=== PATIENT | female | born 1955 | race Caucasian/White ===

== ENCOUNTER 2020-06-24 10:10 | Outpatient (REF) | payer OTHER, SELFPAY ==
--- NOTE | 2020-06-24 10:22 | XR_ITS ---
EXAMINATION: XR CHEST CLINICAL INFORMATION: Abnormal chest x-ray COMPARISON: None TECHNIQUE: 2 views of the chest were obtained. FINDINGS: Cardiac silhouette is normal in size. Lungs are well aerated. There is no lobar consolidation. Suspected right apical pleural thickening/scarring. No pleural effusion or pneumothorax. Mild degenerative changes of the spine. XR/XR chest 2V IMPRESSION: No acute pulmonary pathology.
== END 2020-06-24 10:11 | disposition home or self-care (01) ==
LOC: HO.XRAY 10:10
PROVIDERS: PCP Internal Medicine; Visit Provider Hospitalist
DX: R93.89 Abnormal findings on diagnostic imaging of other specified body structures (principal)
CPT/HCPCS: 71046

== ENCOUNTER → 2020-06-27 08:53 | Outpatient (BNVA) | payer OTHER, SELFPAY | PROVIDERS: PCP Internal Medicine; Visit Provider Hospitalist | DX: Z76.89 Persons encountering health services in other specified circumstances (principal) ==

== ENCOUNTER 2023-10-24 13:15 | Outpatient (AMB) | payer BC, SELFPAY ==
[2023-10-24 13:22] VITALS: PULSE 74; O2SAT 97; BMI 23.0
--- NOTE | 2023-10-24 13:22 | MHC.OFFVIS ---
Intake Vital Signs 10/24/23 13:22 Height 5 ft 3 in Weight 130 lb BMI 23.0 Pulse 74 Pulse Source Pulse Oximeter Pulse Oximetry (%) 97 Oxygen Delivery Method Room Air Intake Visit Reasons: Asthma Toggle Press Folder And Feeder Required: No Allergies aspirin Allergy (Severe, Verified 10/24/23 13:24) Deadly Oxycodone Allergy (Severe, Uncoded 10/24/23 13:24) Rash Percocet Allergy (Severe, Uncoded 10/24/23 13:24) Rash Advil PM Adverse Reaction (Unknown, Uncoded 10/24/23 13:24) GI Upset HPI HPI Comments History of Present Illness Details The patient is a 64-year-old woman with a known history of perforated duodenal ulcer requiring surgery. Initially I had evaluated her after she had a bout of a viral syndrome and she developed wheezing and was treated accordingly. Subsequent after that she felt well and she was able to be weaned off medication. At the time she did have an x-ray demonstrating some hyperinflation with some basilar atelectasis and scarring. We had also looked at some x-rays from after surgery which she had postoperative basilar changes as well. After that the patient had been doing well off inhalers. She still has a rescue inhaler that she had not used. She started complaining of some chest tightness and pain. She did go to a chiropractor and did have manipulations and had some improvement discomfort. In the meantime she underwent an x-ray which demonstrated hyperinflation of the chest with retrosternal space. I personally reviewed the x-rays. She still has some atelectasis and potentially scarring at the bases left more than right. Indeed her x-rays have not been normal after her surgery. She was concerned because of the hyperinflation. Therefore, in the office today we did a repeat spirometry demonstrating no obstructive ventilatory defect therefore the patient does not have COPD. However, she may have asthma with waxing waning symptoms. Therefore we did talk about considering a methacholine challenge. In the meantime the patient does have a rescue inhaler and we did provide her with a peak flow to make sure that she will check her peak flow regularly, but, also when having symptoms. 06/27/2020 the patient is here for pulmonary follow-up visit. Overall she has been doing very well. She has not had to use her rescue inhaler. She does state active walking on a regular basis. She denies any wheezing or any significant coughing. Again we talked about a spirometry demonstrating no evidence of a fixed obstruction. The patient is concerned with the diagnosis of COPD. At this point we do not find any evidence of COPD, although, she probably has some reactive airway disease and/or asthma. She also had a chest x-ray that we personally reviewed in the office. She has interval resolution of the atelectasis although she still has some slight thickening of the left diaphragmatic paresis. Very minimal. In addition to that likely has some apical scarring which is common. Otherwise the patient is without any other complaints. Will plan to have her come back sometime in the fall of 2020 and will perform formal pulmonary functions at that time. If the patient has any worsening symptoms prior to that she is to call for an appointment. 10/24/2023 the patient is here for a sick visit. Apparently she had been in his usual state health until after the holidays when she started developing a respiratory illness. She started developing a cough. Cough was persistent. Moderate severity. Did not respond to her respiratory therapy. She did seek medical care. She had an x-ray without any acute disease. The patient was also placed on a course of antibiotics, doxycycline. No significant improvement. She still been struggling with her cough. Denies any chest tightness or wheezing. Denies any fevers or chills. On examination today the patient does have a cough which appears to be more bronchospastic. In addition to that does have erythema of the nose although no significant cobblestoning. Will go ahead and request blood work to assess here immune system and also allergies which may be contributing to her underlying upper airway cough syndrome. Will go ahead and also treat her for sinusitis and patient will call if she is no better. [facility] Medical History (Updated 10/27/23 @ 20:56 by Claudy Hunter MD) Chronic cough Allergies Reactive airway disease Abnormal chest x-ray Review of Systems Const Denies night sweats ENT Reports change in voice, Denies lip swelling, Denies mouth pain, Reports nasal congestion, Reports nasal discharge, Reports nasal obstruction, Reports post nasal drip and Denies tongue swelling Card Denies chest pain Resp Reports cough GI Denies abdominal pain Musc Denies no additional complaints Neuro Denies Neuro-related abnormal movements Psych Denies no additional complaints Paolo/Lymph Denies easy bleeding and Denies lymphadenopathy Aller/Immun Denies lip swelling and Denies tongue swelling Physical Exam Vital Signs: Last Vital Signs Pulse 74 10/24/23 13:22 Pulse Ox 97 10/24/23 13:22 Oxygen Delivery Method Room Air 10/24/23 13:22 BMI result Body Mass Index 23.0 Const General: alert HEENT General nose exam: Abnormal external nose present and Nasal discharge present Eyes Pupils: Equal, round and reactive pupils present Neck Neck: Yes normal visual inspection, Yes full ROM and Yes no lymphadenopathy Chest Chest palpation & inspection: normal inspection of the chest Resp Auscultation: diminished lung sounds Cardio Rate: regular rate Rhythm: regular rhythm Heart sounds: S1 normal heart sound present and S2 normal heart sound present GI Palpation (GI): Soft to palpation and nontender Auscultation: normal bowel sounds General: Yes no CVA tenderness Back/Spine/Pelvis Back: no CVA tenderness Skin General skin exam: rashes and/or lesions noted Neuro Cranial nerves: Yes Equal, round and reactive pupils present Assessment & Plan Assessment & Plan (1) Abnormal chest x-ray: Comment: Overall better. Likely postoperative changes. No further imaging studies warranted. Code(s): R93.89 - Abnormal findings on diagnostic imaging of other specified body structures (2) Reactive airway disease: Code(s): J45.909 - Unspecified asthma, uncomplicated Qualifiers: Asthma severity: mild Asthma persistence: intermittent Asthma complication type: uncomplicated Qualified Code(s): J45.20 - Mild intermittent asthma, uncomplicated Plan: Continue short-acting beta agonist as needed If she needs her short-acting beta agonist regularly consider methacholine challenge to assess for hyperreactive airways and diagnosis of asthma. (3) Chronic cough: Code(s): R05.3 - Chronic cough (4) Allergies: Code(s): T78.40XA - Allergy, unspecified, initial encounter Qualifiers: Encounter type: initial encounter Qualified Code(s): T78.40XA - Allergy, unspecified, initial encounter (5) Sinusitis: Code(s): J32.9 - Chronic sinusitis, unspecified Qualifiers: Sinusitis location: unspecified location Chronicity: subacute Qualified Code(s): J01.90 - Acute sinusitis, unspecified Plan Start Augmentin Start Medrol pk cough medicine LORI as needed Bloodwork Orders: Orders Erythrocyte Sedimentation Rate 10/24/23 R05.3 - Chronic cough, T78.40XA - Allergy, unspecified, initial encounter Hypersensitive Pneumonitis Prf 10/24/23 R05.3 - Chronic cough, R91.8 - Other nonspecific abnormal finding of lung field, T78.40XA - Allergy, unspecified, initial encounter Immunoglobulin G Subclasses 10/24/23 R05.3 - Chronic cough, T78.40XA - Allergy, unspecified, initial encounter Resp Allergy Profile Region I 10/24/23 R05.3 - Chronic cough, R91.1 - Solitary pulmonary nodule, T78.40XA - Allergy, unspecified, initial encounter Cell Count w Diff Pleural Fld 10/24/23 R05.3 - Chronic cough, T78.40XA - Allergy, unspecified, initial encounter Immunoglobulin E 10/24/23 R05.3 - Chronic cough, T78.40XA - Allergy, unspecified, initial encounter JOSE Reflex Titer and Pattern 10/24/23 R05.3 - Chronic cough, T78.40XA - Allergy, unspecified, initial encounter Medications: New methylprednisolone (Medrol (Hermilo)) PO PER PKG DIR 21 ea 0RF 6 days codeine-guaifenesin 10-100 mg/5 mL 10 mL PO Q6H PRN 300 mL 0RF cough 10 days amoxicillin-pot clavulanate 875-125 mg 1 tab PO BID 20 tabs 0RF 10 days albuterol sulfate 90 mcg/actuation 2 inhalations inhalation Q6H PRN 18 grams 12RF shortness of breath or wheezing 30 days J44.9 - Chronic obstructive pulmonary disease, unspecified Coding Level of Care Code Est Pt Level 4 (45952) Diagnoses Abnormal chest x-ray R93.89 Mild intermittent reactive airway disease without complication J45.20 Asthma severity: mild Asthma persistence: intermittent Asthma complication type: uncomplicated Chronic cough R05.3 Allergy, initial encounter T78.40XA Encounter type: initial encounter Subacute sinusitis, unspecified location J01.90 Sinusitis location: unspecified location Chronicity: subacute Time Spent (min) 18
== END 2023-10-24 13:53 | disposition home or self-care (01) ==
PROVIDERS: PCP Physician Assistant Medical; Visit Provider Hospitalist
DX: R93.89 Abnormal findings on diagnostic imaging of other specified body structures (principal); J45.20 Mild intermittent asthma, uncomplicated; R05.3 Chronic cough; T78.40XA Allergy, unspecified, initial encounter; J01.90 Acute sinusitis, unspecified
CPT/HCPCS: 99214

== ENCOUNTER 2023-10-24 13:15 | Outpatient (REF) | payer BC, SELFPAY ==
[2023-10-24 16:12] LABS: Erythrocyte Sedimentation Rate 6 MM/HR (0-20)
[2023-10-26 09:28] LABS: Anti Nuclear Antibody Screen NEGATIVE (NEGATIVE)
[2023-10-26 18:33] LABS: Immunoglobulin E 7 kU/L (<OR=114)
[2023-10-27 16:37] LABS: Immunoglobulin G Subclass 1 531 mg/dL (382-929); Immunoglobulin G Subclass 2 321 mg/dL (241-700); Immunoglobulin G Subclass 3 44 mg/dL (22-178); Immunoglobulin G Subclass 4 16.4 mg/dL (4-86); Immunoglobulin G Total 902 mg/dL (600-1540)
[2023-10-30 13:33] LABS: Asperg fumigatus Precip Abs NEGATIVE (NEGATIVE); Micropoly faeni Abs NEGATIVE (NEGATIVE); Pigeon serum Abs NEGATIVE (NEGATIVE); Saccharo pora viridis Abs NEGATIVE (NEGATIVE); Thermo candidus Abs NEGATIVE (NEGATIVE); Thermoa vulgaris #1 NEGATIVE (NEGATIVE)
== END 2023-10-24 13:16 | disposition home or self-care (01) ==
LOC: HO.LAB 13:15
PROVIDERS: PCP Physician Assistant Medical; Visit Provider Hospitalist
DX: R05.3 Chronic cough (principal); R91.8 Other nonspecific abnormal finding of lung field; T78.40XA Allergy, unspecified, initial encounter; R93.89 Abnormal findings on diagnostic imaging of other specified body structures; J45.20 Mild intermittent asthma, uncomplicated
CPT/HCPCS: 36415; 82784; 82785; 85652; 86038; 86331; 86606; 86609

== ENCOUNTER 2023-12-04 11:07 | Outpatient (AMB) | payer BC, SELFPAY ==
--- NOTE | 2023-12-04 11:15 | MHC.OFFVIS ---
Vital Signs 12/04/23 11:17 Height 5 ft 3 in Weight 131 lb BMI 23.2 Pulse 69 Pulse Source Pulse Oximeter Pulse Oximetry (%) 95 Oxygen Delivery Method Room Air Intake Visit Reasons: Asthma Cement Car Dumper Required: No Allergies aspirin Allergy (Severe, Verified 12/04/23 11:18) Deadly Oxycodone Allergy (Severe, Uncoded 12/04/23 11:18) Rash Percocet Allergy (Severe, Uncoded 12/04/23 11:18) Rash Advil PM Adverse Reaction (Unknown, Uncoded 12/04/23 11:18) GI Upset HPI Comments Details: The patient is a 68-year-old woman with a known history of perforated duodenal ulcer requiring surgery. Initially I had evaluated her after she had a bout of a viral syndrome and she developed wheezing and was treated accordingly. Subsequent after that she felt well and she was able to be weaned off medication. At the time she did have an x-ray demonstrating some hyperinflation with some basilar atelectasis and scarring. We had also looked at some x-rays from after surgery which she had postoperative basilar changes as well. After that the patient had been doing well off inhalers. She still has a rescue inhaler that she had not used. She started complaining of some chest tightness and pain. She did go to a chiropractor and did have manipulations and had some improvement discomfort. In the meantime she underwent an x-ray which demonstrated hyperinflation of the chest with retrosternal space. I personally reviewed the x-rays. She still has some atelectasis and potentially scarring at the bases left more than right. Indeed her x-rays have not been normal after her surgery. She was concerned because of the hyperinflation. Therefore, in the office today we did a repeat spirometry demonstrating no obstructive ventilatory defect therefore the patient does not have COPD. However, she may have asthma with waxing waning symptoms. Therefore we did talk about considering a methacholine challenge. In the meantime the patient does have a rescue inhaler and we did provide her with a peak flow to make sure that she will check her peak flow regularly, but, also when having symptoms. 06/27/2020 the patient is here for pulmonary follow-up visit. Overall she has been doing very well. She has not had to use her rescue inhaler. She does state active walking on a regular basis. She denies any wheezing or any significant coughing. Again we talked about a spirometry demonstrating no evidence of a fixed obstruction. The patient is concerned with the diagnosis of COPD. At this point we do not find any evidence of COPD, although, she probably has some reactive airway disease and/or asthma. She also had a chest x-ray that we personally reviewed in the office. She has interval resolution of the atelectasis although she still has some slight thickening of the left diaphragmatic paresis. Very minimal. In addition to that likely has some apical scarring which is common. Otherwise the patient is without any other complaints. Will plan to have her come back sometime in the fall of 2020 and will perform formal pulmonary functions at that time. If the patient has any worsening symptoms prior to that she is to call for an appointment. 10/24/2023 the patient is here for a sick visit. Apparently she had been in his usual state health until after the holidays when she started developing a respiratory illness. She started developing a cough. Cough was persistent. Moderate severity. Did not respond to her respiratory therapy. She did seek medical care. She had an x-ray without any acute disease. The patient was also placed on a course of antibiotics, doxycycline. No significant improvement. She still been struggling with her cough. Denies any chest tightness or wheezing. Denies any fevers or chills. On examination today the patient does have a cough which appears to be more bronchospastic. In addition to that does have erythema of the nose although no significant cobblestoning. Will go ahead and request blood work to assess here immune system and also allergies which may be contributing to her underlying upper airway cough syndrome. Will go ahead and also treat her for sinusitis and patient will call if she is no better. 12/04/2023 the patient is here for pulmonary follow-up visit. She has feeling a little better although she states that after she was treated she ended up a strep ended up needing another course of antibiotics. Now she is finally getting a little better. The cough continues to be persistent moderate severity. Typically hacky cough. Again she has been on multiple courses of antibiotics. We did check a blood work her immune system is strong with normal immunoglobulin levels. Her IgE levels are normal and no significant eosinophilia. Therefore no significant allergic component appreciated. Since she has strep I did recommend she get the Prevnar 20 vaccine today. Her PFTs are really reassuring without any evidence of obstruction although it could be waxing and waning therefore, coughing asthma still in differential. Will provide her with Mk Arriaga to see if we can alleviate some of the cough symptoms. In the meantime she is going to start empirically Breo once a day. If the patient is no better and she continues to cough then we talked about ordering a CT scan of the chest. I did review her last chest x-ray that she had this year demonstrating some peribronchial coughing suggesting some degree of bronchitis and also has some slight blunting of the recess on the left side. Therefore will be reasonable to further look into her lungs with a CT scan to address her ongoing symptoms. [facility] Medical History (Updated 10/27/23 @ 20:56 by Claudy Hunter MD) Chronic cough Allergies Reactive airway disease Abnormal chest x-ray Social History (Updated 12/04/23 @ 11:20 by Jing Dow Fransisca) Patient Tobacco Use Status: Former Tobacco user Tobacco use type: Cigarette Years Smoked: 43 Years Review of Systems Const Denies night sweats ENT Denies lip swelling, Denies mouth pain, Reports nasal congestion, Reports nasal discharge, Reports nasal obstruction, Reports post nasal drip and Denies tongue swelling Card Denies chest pain Resp Reports cough GI Denies abdominal pain Musc Denies no additional complaints Neuro Denies Neuro-related abnormal movements Psych Denies no additional complaints Paolo/Lymph Denies easy bleeding and Denies lymphadenopathy Aller/Immun Denies lip swelling and Denies tongue swelling Physical Exam Vital Signs: Last Vital Signs Pulse 69 12/04/23 11:17 Pulse Ox 95 12/04/23 11:17 Oxygen Delivery Method Room Air 12/04/23 11:17 BMI result Body Mass Index 23.2 Const General: alert HEENT General nose exam: Abnormal external nose present and Nasal discharge present Eyes Pupils: Equal, round and reactive pupils present Neck Neck: Yes normal visual inspection, Yes full ROM and Yes no lymphadenopathy Chest Chest palpation & inspection: normal inspection of the chest Resp Effort & Inspection: normal respiratory effort Auscultation: diminished lung sounds Cardio Rate: regular rate Rhythm: regular rhythm Heart sounds: S1 normal heart sound present and S2 normal heart sound present GI Palpation (GI): Soft to palpation and nontender Auscultation: normal bowel sounds General: Yes no CVA tenderness Back/Spine/Pelvis Back: no CVA tenderness Skin General skin exam: rashes and/or lesions noted Neuro Cranial nerves: Yes Equal, round and reactive pupils present Assessment & Plan Assessment & Plan (1) Abnormal chest x-ray: Comment: Overall better. Likely postoperative changes. No further imaging studies warranted. Code(s): R93.89 - Abnormal findings on diagnostic imaging of other specified body structures Category: Medical (2) Reactive airway disease: Code(s): J45.909 - Unspecified asthma, uncomplicated Category: Medical Qualifiers: Asthma complication type: uncomplicated Asthma persistence: intermittent Asthma severity: mild Qualified Code(s): J45.20 - Mild intermittent asthma, uncomplicated Plan: Continue short-acting beta agonist as needed If she needs her short-acting beta agonist regularly consider methacholine challenge to assess for hyperreactive airways and diagnosis of asthma. (3) Chronic cough: Code(s): R05.3 - Chronic cough Category: Medical (4) Allergies: Code(s): T78.40XA - Allergy, unspecified, initial encounter Category: Medical Qualifiers: Encounter type: initial encounter Qualified Code(s): T78.40XA - Allergy, unspecified, initial encounter Plan start Breo 200mcg daily cough medicine: benzonate LORI as needed prevnar [address] chest if symptoms are no better (PFTs were non diagnostic, CXR with some increase markings and peribronchial coughing F/U 3 months Orders: Orders Pneumococcal 20 Immunization Today J45.20 - Mild intermittent asthma, uncomplicated, R05.3 - Chronic cough Medications: New benzonatate 200 mg PO BID PRN 60 caps 3RF cough 30 days fluticasone furoate-vilanterol 200-25 mcg/dose (Breo Ellipta) 1 inh inhalation DAILY 60 ea 11RF 30 days J45.909 - Unspecified asthma, uncomplicated Coding Level of Care Code Tele Est Pt Level 4 (59052) Diagnoses Abnormal chest x-ray R93.89 Mild intermittent reactive airway disease without complication J45.20 Asthma complication type: uncomplicated Asthma persistence: intermittent Asthma severity: mild Chronic cough R05.3 Allergy, initial encounter T78.40XA Encounter type: initial encounter Time Spent (min) 17
[2023-12-04 11:17] VITALS: PULSE 69; O2SAT 95; BMI 23.2
== END 2023-12-04 11:52 | disposition home or self-care (01) ==
PROVIDERS: PCP Physician Assistant Medical; Visit Provider Hospitalist
DX: Z23 Encounter for immunization (principal); J45.20 Mild intermittent asthma, uncomplicated; R93.89 Abnormal findings on diagnostic imaging of other specified body structures; R05.3 Chronic cough; T78.40XA Allergy, unspecified, initial encounter
CPT/HCPCS: 99214

== ENCOUNTER → 2023-12-04 11:07 | Outpatient (BNVA) | payer BC, SELFPAY | PROVIDERS: PCP Physician Assistant Medical; Visit Provider Hospitalist | DX: J45.20 Mild intermittent asthma, uncomplicated (principal); R39.89 Other symptoms and signs involving the genitourinary system; R05.3 Chronic cough; T78.40XA Allergy, unspecified, initial encounter; Z23 Encounter for immunization | CPT/HCPCS: 90471; 90677 ==

== ENCOUNTER 2024-03-30 08:28 | Outpatient (AMB) | payer BC, SELFPAY ==
[2024-03-30 08:33] VITALS: BP 124/60; PULSE 75; O2SAT 96; BMI 23.8
--- NOTE | 2024-03-30 08:33 | MHC.OFFVIS ---
Vital Signs 03/30/24 08:33 Height 5 ft 2.5 in Weight 132 lb BMI 23.8 BP 124/60 Blood Pressure Location Lt brachial Position Sitting Pulse 75 Pulse Source Pulse Oximeter Pulse Oximetry (%) 96 Oxygen Delivery Method Room Air Intake Visit Reasons: Asthma User Support Specialist Required: No Allergies aspirin Allergy (Severe, Verified 03/30/24 08:37) Deadly Oxycodone Allergy (Severe, Uncoded 03/30/24 08:37) Rash Percocet Allergy (Severe, Uncoded 03/30/24 08:37) Rash ibuprofn Adverse Reaction (Severe, Uncoded 03/30/24 08:37) Stomach Upset Advil PM Adverse Reaction (Unknown, Uncoded 03/30/24 08:37) GI Upset HPI Comments Details: The patient is a 68-year-old woman with a known history of perforated duodenal ulcer requiring surgery. Initially I had evaluated her after she had a bout of a viral syndrome and she developed wheezing and was treated accordingly. Subsequent after that she felt well and she was able to be weaned off medication. At the time she did have an x-ray demonstrating some hyperinflation with some basilar atelectasis and scarring. We had also looked at some x-rays from after surgery which she had postoperative basilar changes as well. After that the patient had been doing well off inhalers. She still has a rescue inhaler that she had not used. She started complaining of some chest tightness and pain. She did go to a chiropractor and did have manipulations and had some improvement discomfort. In the meantime she underwent an x-ray which demonstrated hyperinflation of the chest with retrosternal space. I personally reviewed the x-rays. She still has some atelectasis and potentially scarring at the bases left more than right. Indeed her x-rays have not been normal after her surgery. She was concerned because of the hyperinflation. Therefore, in the office today we did a repeat spirometry demonstrating no obstructive ventilatory defect therefore the patient does not have COPD. However, she may have asthma with waxing waning symptoms. Therefore we did talk about considering a methacholine challenge. In the meantime the patient does have a rescue inhaler and we did provide her with a peak flow to make sure that she will check her peak flow regularly, but, also when having symptoms. 06/27/2020 the patient is here for pulmonary follow-up visit. Overall she has been doing very well. She has not had to use her rescue inhaler. She does state active walking on a regular basis. She denies any wheezing or any significant coughing. Again we talked about a spirometry demonstrating no evidence of a fixed obstruction. The patient is concerned with the diagnosis of COPD. At this point we do not find any evidence of COPD, although, she probably has some reactive airway disease and/or asthma. She also had a chest x-ray that we personally reviewed in the office. She has interval resolution of the atelectasis although she still has some slight thickening of the left diaphragmatic paresis. Very minimal. In addition to that likely has some apical scarring which is common. Otherwise the patient is without any other complaints. Will plan to have her come back sometime in the fall of 2020 and will perform formal pulmonary functions at that time. If the patient has any worsening symptoms prior to that she is to call for an appointment. 10/24/2023 the patient is here for a sick visit. Apparently she had been in his usual state health until after the holidays when she started developing a respiratory illness. She started developing a cough. Cough was persistent. Moderate severity. Did not respond to her respiratory therapy. She did seek medical care. She had an x-ray without any acute disease. The patient was also placed on a course of antibiotics, doxycycline. No significant improvement. She still been struggling with her cough. Denies any chest tightness or wheezing. Denies any fevers or chills. On examination today the patient does have a cough which appears to be more bronchospastic. In addition to that does have erythema of the nose although no significant cobblestoning. Will go ahead and request blood work to assess here immune system and also allergies which may be contributing to her underlying upper airway cough syndrome. Will go ahead and also treat her for sinusitis and patient will call if she is no better. 12/04/2023 the patient is here for pulmonary follow-up visit. She has feeling a little better although she states that after she was treated she ended up a strep ended up needing another course of antibiotics. Now she is finally getting a little better. The cough continues to be persistent moderate severity. Typically hacky cough. Again she has been on multiple courses of antibiotics. We did check a blood work her immune system is strong with normal immunoglobulin levels. Her IgE levels are normal and no significant eosinophilia. Therefore no significant allergic component appreciated. Since she has strep I did recommend she get the Prevnar 20 vaccine today. Her PFTs are really reassuring without any evidence of obstruction although it could be waxing and waning therefore, coughing asthma still in differential. Will provide her with Tesmichael Arriaga to see if we can alleviate some of the cough symptoms. In the meantime she is going to start empirically Breo once a day. If the patient is no better and she continues to cough then we talked about ordering a CT scan of the chest. I did review her last chest x-ray that she had this year demonstrating some peribronchial coughing suggesting some degree of bronchitis and also has some slight blunting of the recess on the left side. Therefore will be reasonable to further look into her lungs with a CT scan to address her ongoing symptoms. 03/30/2024 the patient is here for a pulmonary follow-up visit. The patient continues have a cough. Moderate severity. Still very bothersome to her people around her. It is independent of position and also eating. She did try the inhaler Breo for a month without any significant improvement. Likely has a upper airway cough syndrome. The patient has been also having issues with hoarseness. No significant productive secretions. The patient will benefit from an ENT evaluation for laryngoscopy to assess her vocal cords. In the meantime will be reasonable to start her on small dose of Sudafed. The patient sounds to be sensitive to the Sudafed at high dose. In addition to that we can try 1st generation antihistamine to treat her for the upper a cuff syndrome. She can use inhaler as needed. Will also repeat an x-ray. Her last x-ray was abnormal. If she has any changes on the x-ray the CT scan be helpful to further address her ongoing symptoms. [facility] Medical History (Updated 03/30/24 @ 20:50 by Claudy Hunter MD) Upper airway cough syndrome Chronic cough Allergies Reactive airway disease Abnormal chest x-ray Social History (Updated 12/04/23 @ 11:20 by VIVEK Ren) Patient Tobacco Use Status: Former Tobacco user Tobacco use type: Cigarette Years Smoked: 43 Years Review of Systems Const Denies night sweats ENT Denies lip swelling, Denies mouth pain, Reports nasal congestion, Reports nasal discharge, Reports nasal obstruction, Reports post nasal drip and Denies tongue swelling Card Denies chest pain Resp Reports cough GI Denies abdominal pain Musc Denies no additional complaints Neuro Denies Neuro-related abnormal movements Psych Denies no additional complaints Paolo/Lymph Denies easy bleeding and Denies lymphadenopathy Aller/Immun Denies lip swelling and Denies tongue swelling Physical Exam Vital Signs: Last Vital Signs Pulse 75 03/30/24 08:33 BP 124/60 03/30/24 08:33 Pulse Ox 96 03/30/24 08:33 Oxygen Delivery Method Room Air 03/30/24 08:33 BMI result Body Mass Index 23.8 Const General: alert HEENT General nose exam: Abnormal external nose present and Nasal discharge present Eyes Pupils: Equal, round and reactive pupils present Neck Neck: Yes normal visual inspection, Yes full ROM and Yes no lymphadenopathy Chest Chest palpation & inspection: normal inspection of the chest Resp Effort & Inspection: normal respiratory effort Auscultation: clear to auscultation bilaterally Cardio Rate: regular rate Rhythm: regular rhythm Heart sounds: S1 normal heart sound present and S2 normal heart sound present GI Palpation (GI): Soft to palpation and nontender Auscultation: normal bowel sounds General: Yes no CVA tenderness Back/Spine/Pelvis Back: no CVA tenderness Skin General skin exam: rashes and/or lesions noted Neuro Cranial nerves: Yes Equal, round and reactive pupils present Assessment & Plan Assessment & Plan (1) Abnormal chest x-ray: Code(s): R93.89 - Abnormal findings on diagnostic imaging of other specified body structures Category: Medical (2) Reactive airway disease: Code(s): J45.909 - Unspecified asthma, uncomplicated Category: Medical Qualifiers: Asthma complication type: uncomplicated Asthma persistence: intermittent Asthma severity: mild Qualified Code(s): J45.20 - Mild intermittent asthma, uncomplicated Plan: Continue short-acting beta agonist as needed If she needs her short-acting beta agonist regularly consider methacholine challenge to assess for hyperreactive airways and diagnosis of asthma. (3) Chronic cough: Code(s): R05.3 - Chronic cough Category: Medical (4) Allergies: Code(s): T78.40XA - Allergy, unspecified, initial encounter Category: Medical Qualifiers: Encounter type: initial encounter Qualified Code(s): T78.40XA - Allergy, unspecified, initial encounter (5) Upper airway cough syndrome: Code(s): R05.8 - Other specified cough Category: Medical Plan stop Breo 200mcg daily cough medicine: benzonate start low dose pseudophed start chlorphenarimine as needed LORI as needed prevnar 20 repeat CXR, if abnromal or non diagnostic we will request a CT chest ENT referral for laryngoscopy F/U 3 months Orders: Orders XR chest 2V Today R05.3 - Chronic cough Referrals Ear/Nose/Throat Referral R05.3 - Chronic cough Medications: New pseudoephedrine HCl DNExceed 4 doses/24h 30 mg PO Q6H PRN 90 caps 3RF nasal congestion 30 days chlorpheniramine maleate do not exceed 2 doses per 24 hrs 4 mg PO Q6H PRN 90 tabs 3RF cough 30 days Coding Level of Care Code Est Pt Level 4 (43829) Diagnoses Abnormal chest x-ray R93.89 Mild intermittent reactive airway disease without complication J45.20 Asthma complication type: uncomplicated Asthma persistence: intermittent Asthma severity: mild Chronic cough R05.3 Allergy, initial encounter T78.40XA Encounter type: initial encounter Upper airway cough syndrome R05.8 Time Spent (min) 16
== END 2024-03-30 08:58 | disposition home or self-care (01) ==
PROVIDERS: PCP Physician Assistant Medical; Visit Provider Hospitalist
DX: R93.89 Abnormal findings on diagnostic imaging of other specified body structures (principal); J45.20 Mild intermittent asthma, uncomplicated; R05.3 Chronic cough; T78.40XA Allergy, unspecified, initial encounter; R05.8 Other specified cough
CPT/HCPCS: 99214

== ENCOUNTER 2024-03-30 08:28 | Outpatient (REF) | payer BC, SELFPAY ==
--- NOTE | ~2024-03-30 | XR_ITS ---
EXAMINATION: XR CHEST 2 VIEWS CLINICAL INFORMATION: Chronic cough. COMPARISON: Chest radiographs dated 06/24/2020. TECHNIQUE: Frontal and lateral views of the chest were obtained. FINDINGS: The heart, great vessels, pulmonary vasculature and mediastinum are normal. The lungs show no focal infiltrate, effusion or pneumothorax. There is biapical pleural thickening. There is no acute osseous abnormality. There is multi-level thoracic spondylosis. XR/XR chest 2V IMPRESSION: No active cardiopulmonary disease. Electronically signed by: Pavan Schmitt MD 04/09/2024 08:09 PM EDT RP
== END 2024-03-30 08:29 | disposition home or self-care (01) ==
LOC: HO.XRAY 08:28
PROVIDERS: PCP Physician Assistant Medical; Visit Provider Hospitalist
DX: R05.3 Chronic cough (principal)
CPT/HCPCS: 71046

== ENCOUNTER 2024-05-11 07:16 | Outpatient (REF) | payer BC, SELFPAY ==
--- NOTE | ~2024-05-11 | CT_ITS ---
EXAMINATION: CT CHEST WITHOUT CONTRAST CLINICAL INFORMATION: Abnormal findings. COMPARISON: No prior CT. Correlated to chest x-ray dated March 30, 2024. TECHNIQUE: Multidetector volumetric CT imaging of the chest was done. Axial MIP volume rendering provided. Sagittal and coronal reformatted images were obtained. This CT examination was performed using dose optimization techniques as appropriate, variously including the following: *Automated exposure control *Adjustment of mA and/or kV according to patient size (this includes techniques or standardized protocols for targeted exams where dose is matched to indication/reason for exam; i.e. extremities or head) *Use of iterative reconstruction technique DLP: 105 mGy-cm FINDINGS: Submitted for interpretation on June 10, 2024. LUNGS: There is a 1 mm calcification in the left upper lobe likely granuloma. There is a linear and patchy pulmonary groundglass, lung bases and lingula. There is a 1 mm pulmonary nodule in the periphery of the left upper lobe, nonspecific. Bilateral apical lung scarring.. No bronchiectasis. No honeycombing. Respiratory airways is patent. MEDIASTINUM: No lymphadenopathy, mediastinum or pulmonary kelly. No pericardial effusion. No aneurysm in the thoracic aorta. CORONARY ARTERY CALCIFICATION: None visualized on this study. PLEURA: No pleural effusion. No pneumothorax. AXILLA: No lymphadenopathy. UPPER ABDOMEN: Calcified plaques in the abdominal aorta wall. OSSEOUS STRUCTURES: Multilevel spondylosis without acute fracture or listhesis in the axial skeleton. Osteopenia. No lytic or blastic lesions. CT/CT chest wo IV con IMPRESSION: Subsegmental atelectasis versus scarring, lung bases and lingula. Superimposed acute airspace cannot be entirely excluded. Fleischner guidelines were followed. Electronically signed by: Hung Arias MD 06/10/2024 10:54 AM EST
== END 2024-05-11 07:17 | disposition home or self-care (01) ==
LOC: HO.CT 07:16
PROVIDERS: PCP Internal Medicine; Visit Provider Hospitalist
DX: R93.89 Abnormal findings on diagnostic imaging of other specified body structures (principal); J92.9 Pleural plaque without asbestos
CPT/HCPCS: 71250

== ENCOUNTER → 2024-05-11 07:18 | Outpatient (BNV) | payer BC, SELFPAY | PROVIDERS: PCP Internal Medicine; Visit Provider Radiology Diagnostic Radiology | DX: R91.8 Other nonspecific abnormal finding of lung field (principal) | CPT/HCPCS: 71250 ==

== ENCOUNTER 2024-07-19 07:42 | Outpatient (REF) | payer BC, SELFPAY ==
--- NOTE | ~2024-07-19 | FL_ITS ---
EXAMINATION: FL UPPER GI WITH AIR CLINICAL INFORMATION: Cough, reflux. History of perforated duodenum. COMPARISON: None TECHNIQUE: Fluoroscopic air contrast upper GI examination was performed utilizing standard techniques with thin and thick barium and effervescent granules. Numerous spot images were obtained. FINDINGS: Dual and single contrast images of the esophagus demonstrate a normal caliber and contour. There is mild cricopharyngeal achalasia present. There is a mild granular appearance of the esophageal mucosa, suggestive of esophagitis. No ulcerations are seen. In addition there is felinization of the mid and distal esophageal mucosa. No strictures or masses are identified. Esophageal peristalsis was normal. A small type I hiatal hernia is present. Gastroesophageal reflux is seen up to the midesophagus. Dual contrast and single contrast images of the stomach demonstrated post surgical changes consistent with prior history of gastrojejunostomy. The gastric rugal folds have a mildly thickened appearance, suggestive of gastritis. No masses or ulcerations are seen. Contrast freely passed freely through the gastrojejunostomy and into the jejunum, as well as into the gastric antrum and the duodenal bulb without delay. Single and air-contrast images of the duodenal bulb demonstrate no abnormality. The duodenal sweep has a normal appearance, course, and mucosal fold appearance. The imaged proximal jejunum has a normal fold pattern and caliber. FLUOROSCOPY TIME: 3 minutes 52 seconds Number of Spot Images: 12 Number of Cine: 11 DOSE AREA PRODUCT: 1791 uGy-m2 (microgray-meter squared) FL/FL barium swallow IMPRESSION: 1. Mild cricopharyngeal achalasia. 2. Mild granular appearance of the esophageal mucosa, suggestive of esophagitis. 3. Felinization of the mid and distal esophageal mucosa. This is a benign finding associated with chronic gastroesophageal reflux. 4. Small type I hiatal hernia with moderate gastric esophageal reflux. 5. Post surgical changes consistent with prior history of gastrojejunostomy. Both the pylorus in the gastrojejunostomy is widely patent. This procedure was performed by Carter Yadav PA-C, and supervised by Dr. Dietz. Addendum: There is a small esophageal diverticulum. Mrinal. Mali. MAKI. Electronically signed by: Avinash Dietz MD 07/19/2024 03:00 [facility]
--- OUTSIDE RECORDS SUMMARY | 2024-07-19 07:45 | XMS_ITS | Continuity of Care Document ---
Author Organization [facility] [address] [place] [address] Phone [phone] Care Team Providers Care Winding Inspector And Tester Name Role Phone Luann Harman Care Team Information Receiv er [phone] Problems Active Problems Provider Date Gastroesophageal reflux disease Narayan patel M.D. Onset: 04/01/2022 Osteoporosis Narayan Chou M.D. Onset: 0 04/01/2022 Vitamin D deficiency Narayan Chou M.D. Ons et: 04/01/2022 Social History Type Date Description Comments Sex Unknown Lives With Spouse Tobacco Use Start: Unknown Never Smoked Cigarettes ETOH Use Never used alcohol Allergies and adverse reactions Active Allergies Criticality Reaction Severity Comments Date Advil Unable to assess criticality 04/01/2022 Voltaren Unable to assess criticality 04/01/2022 Aspirin Unable to assess criticality 04/01/2022 Oxycodone Unable to assess criticality 04/01/2022 Medications Active Medications SIG Qnty Indications Ordering Provider Date Vitamin D (Cholecalciferol)25mcg (1000 Ut) Capsules 1 by mouth every day Narayan Chou M.D. 04/01/2022 Albuterol Sulfate [id number](90Base) mcg/Act Aerosol Take 2 Puffs Every Four Hours as Needed For Wheezing/Shortne ss Of Breath Unknown Pantoprazole [id number] Tablets DR Take One Tablet By Mouth Twice A Day Unknown Sertraline [id number] Tablets 1 by mouth every day Unknown Vital Signs Date Vital Result Comment 08/05/2023 4:23pm BP Systolic 120 mmHg BP Diastolic 80 mmHg Heart Rate 72 /min Height 63 inches 5'3 Weight 136.50 lb BMI (Body Mass Index) 24.2 kg/m2 Results Test Acquired Date Facility Test Result H/L Range Note Laboratory test finding 08/08/2023 [facility] Calcium 9.3 mg/dL (8.6-10. 5) Creatinine 08/08/2023 [facility] Creatinine 0.6 mg/dL (0.5-1.0 ) Estimated GFR Creatinine 100 ML/MIN/1.73 M2 1 Laboratory test finding 08/08/2023 [facility] BUN 11 mg/dL (8-23) Laboratory test finding 08/20/2022 [facility] Albumin 4.4 GM/DL (3.4-4.8 ) BUN 13 mg/dL (8-23) Calcium 10.1 mg/dL (8.6-10. 5) Creatinine 08/20/2022 [facility] Creatinine 0.7 mg/dL (0.5-1.0 ) Estimated GFR Creatinine 95 ML/MIN/1.73 M2 2 Laboratory test finding 08/19/2022 [facility] BUN <pending> Albumin <pending> Calcium <pending> Creatinine <pending> Complete Abc With Diff 08/09/2022 [facility] WBC 5.5 K/MM3 (4.0-11. 0) RBC 4.45 M/MM3 (4.20-5. 40) HGB 13.7 GM/DL (11.7-15 .5) HCT 43.6 % (35.7-45 .8) MCV 98.0 FL (80.0-10 0.0) MCH 30.8 pg (27.0-34 .0) MCHC 31.4 g/dL Low (33.0-37 .0) PLT 318 K/MM3 (150-460 ) RDW-SD 45.1 FL (<47.0) MPV 10.7 FL (9.4-12. 4) Automated NRBC 0.0 #/100WBC'S Abs. NRBC 0.0 K/MM3 Neut # 3.2 K/MM3 (1.3-7.0 ) Lymph # 1.5 K/MM3 (0.8-3.1 ) [place]# 0.6 K/MM3 (0.4-0.9 ) Eo # 0.1 K/MM3 (0.0-0.4 ) Baso # 0.1 K/MM3 (0.0-0.1 ) Abs. Imm Gran 0.0 K/MM3 Neut 57.8 % (44-76) Lymph 27.0 % (15-43) Monocyte 10.7 % High (4.5-10. 5) Eo 2.5 % (0-6) Baso 1.6 % (0-2) Imm Gran 0.4 % N-Telopeptide Cross Links, Urine 08/09/2022 [facility] Cross Linked N-Telopeptides 439 3 Creat, Urine 195.8 4 N-Telopeptide/C re at Ratio 25 5 NTX Interpretaion Comment 6 1 Creatinine based est imated glomerular filtration (eGFR) in adults is calculated using the National Kidney Foundation recommended 2020 CKD-EPI equation. Estimates GFR from serum creatinine, age and sex. 2 Creatinine based est imated glomerular filtration (eGFR) in adults is calculated using the National Kidney Foundation recommended 2020 CKD-EPI equation. Estimates GFR from serum creatinine, age and sex. 3 Reference range: Not Estab. Unit: nmol BCE [facility] [address] [place] [address] 4 Reference range: Not Estab. Unit: mg/dL Test performed by [facility], [address] [place] [address] 5 Reference range: 0 t o 89 Unit: nM BCE/mM Cr 6 (NOTE) The N-telopeptide and Creatinine are used to calculate the N-telo/Creat. Ratio which is referred to as NTx . Suggested guidelines for the clinical use of NTx are as follows: 1. Menopausal Women not on Hormone Replacement Therapy (HRT): Women with a baseline NTx value >38 are at significant risk for a decrease in bone mineral density (BMD) after 1 year compared to women on HRT. The probability of a decline in BMD increases with NTx value as follows: (1): Baseline NTx Probability of Decrease in BMD 18- 38 1.4 p EQ 0.28 38- 51 2.5 p EQ 0.03 51- 67 3.8 p EQ 0.0006 67-188 17.3 p EQ 0.0001 2. Menopausal Women Receiving Antiresorptive Therapy: The probability that treatment is effective after three months is increased when the measured NTx value is <or EQ 38 nM BCE/mM INGOT PASSER, or NTx has decreased >or EQ 30% from baseline.[1] 3. Patients with Paget's Disease of Bone: The probability that treatment is effective after one month is increased when the measured NTx value is within the reference range, or NTx has decreased >or EQ 30% from baseline.[2] 1. Anil CH, Eva NH, Jose GS, et al. Am J Med, 102:29-37,1996. (1):M757, 1996. 2. Bone H, Ericka J, et al. J Bone Min Res.11(1):M757,1995 [place] [address] Medical Devices Description No Information Available Encounters Type Date Location Provider Dx Diagnosis Office Visit 08/05/2023 4:30p Main Office Narayan Chou M.D. M81.0 Age-related osteoporosis w/o current pathological fracture Assessments Date Code Description Provider 08/08/2023 M81.0 Age-related oste oporosis without current pathological fracture Narayan Chou M.D. 08/05/2023 M81.0 Osteoporosis Narayan heard M.D. Plan of Treatment Future Appointment(s):* 07/26/2024 8:15 am - Narayan Chou M.D. at Main Office 04/01/2022 - Narayan Chou M.D.* M81.0 Osteoporosis * Functional Status Description No Information Available Mental Status Description No Information Available Referrals Description No Information Available
--- OUTSIDE RECORDS SUMMARY | 2024-07-19 07:45 | XMS_ITS ---
Author Name [facility] Organization Unknown History of Medication Use Medication Directions Dispensed Refills Start Date End Date Stat us sertraline (ZOLOFT) 50 MG tablet Take 50 mg by mouth. 06/17/2024 07/20/9999 active gabapentin (NEURONTIN) 300 MG capsule Take 1 capsule (300 mg total) by mouth nightly. 06/17/2024 07/20/9999 active esomeprazole (NexIUM) 40 MG capsule 1 capsule by Mouth/Oral Cavity route every 12 hours. 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 ProblemAct [facility] Vitamin D deficiency active 2022-04-01 ProblemAct [facility] History of cold sores active 2024-06-15 ProblemAct [facility] Family history of colon cancer active 2018-10-16 ProblemAct [facility] Hoarseness active EncounterDiagnosisAct [facility] Perforation of duodenum active 2014-07-24 ProblemAct [facility] Anxiety active 2011-07-15 ProblemAct [facility] Chronic cough active EncounterDiagnosisAct [facility] B12 deficiency active 2024-06-15 ProblemAct [facility] CT Osteoporosis active 2008-09-26 ProblemAct [facility] Immunizations Vaccine Date Source Lot Number Status Influenza Virus Trivalent Sp lit Vaccine (MDV) IM 08/22/2018 CCT [id number] completed Tdap 11/26/2012 CCT [id number] completed Tdap 04/15/2019 CCT [id number] completed Influenza Virus Trivalent Sp lit Vaccine (MDV) IM 07/14/2014 CCT [id number] completed Influenza, Trivalent (FLUARI X, AFLURIA, FLULAVAL, FLUZONE) Preservative Free IM 07/05/2016 [facility] [id number] completed Influenza Virus Trivalent Sp lit Vaccine (MDV) IM 04/01/2020 [facility] [id number] completed Influenza, Quadrivalent (FLU CELVAX) MDCK, Preservative Free IM 04/06/2021 [facility] [id number] completed Influenza Virus Trivalent Sp lit Vaccine (MDV) IM 04/06/2021 [facility] [id number] completed Influenza Virus Trivalent Sp lit Vaccine (MDV) IM 07/05/2016 [facility] [id number] completed Pneumococcal Polysaccharide 23-Valent 07/14/2014 [facility] [id number] completed Influenza, Trivalent (FLUARI X, AFLURIA, FLULAVAL, FLUZONE) Preservative Free IM 07/05/2022 [facility] [id number] completed Td, Unspecified 08/30/2005 [facility] [id number] completed Influenza Virus Trivalent Sp lit Vaccine (MDV) IM 04/15/2019 [facility] [id number] completed Zoster Vaccine Recombinant (Shingrix) 05/10/2018 [facility] [id number] completed Zoster Vaccine Recombinant (Shingrix) 02/05/2018 [facility] [id number] completed
== END 2024-07-19 07:43 | disposition home or self-care (01) ==
LOC: HO.XRAY 07:42
PROVIDERS: PCP Internal Medicine; Visit Provider Hospitalist
DX: K21.9 Gastro-esophageal reflux disease without esophagitis (principal)
CPT/HCPCS: 74220

== ENCOUNTER → 2024-07-19 07:45 | Outpatient (BNV) | payer BC, SELFPAY | PROVIDERS: PCP Internal Medicine; Visit Provider Physician Assistant Surgical | DX: K21.00 Gastro-esophageal reflux disease with esophagitis, without bleeding (principal); K22.5 Diverticulum of esophagus, acquired; K22.0 Achalasia of cardia | CPT/HCPCS: 74221 ==

== ENCOUNTER 2024-07-20 14:03 | Outpatient (AMB) | payer BC, SELFPAY ==
[2024-07-20 14:06] VITALS: BP 97/60; PULSE 75; O2SAT 94; BMI 24.7
--- NOTE | 2024-07-20 14:06 | A.OFFVIS_ITS ---
Vital Signs 07/20/24 14:06 Height 5 ft 2.5 in Weight 137 lb BMI 24.7 BP 97/60 Blood Pressure Location Lt brachial Position Sitting Pulse 75 Pulse Source Doppler Pulse Oximetry (%) 94 Oxygen Delivery Method Room Air Intake Visit Reasons: asthma Allergies aspirin Allergy (Severe, Verified 03/30/24 08:37) Deadly Oxycodone Allergy (Severe, Uncoded 03/30/24 08:37) Rash Percocet Allergy (Severe, Uncoded 03/30/24 08:37) Rash ibuprofn Adverse Reaction (Severe, Uncoded 03/30/24 08:37) Stomach Upset Advil PM Adverse Reaction (Unknown, Uncoded 03/30/24 08:37) GI Upset HPI Comments Details: The patient is a 68-year-old woman with a known history of perforated duodenal ulcer requiring surgery. Initially I had evaluated her after she had a bout of a viral syndrome and she developed wheezing and was treated accordingly. Subsequent after that she felt well and she was able to be weaned off medication. At the time she did have an x-ray demonstrating some hyperinflation with some basilar atelectasis and scarring. We had also looked at some x-rays from after surgery which she had postoperative basilar changes as well. After that the patient had been doing well off inhalers. She still has a rescue inhaler that she had not used. She started complaining of some chest tightness and pain. She did go to a chiropractor and did have manipulations and had some improvement discomfort. In the meantime she underwent an x-ray which demonstrated hyperinflation of the chest with retrosternal space. I personally reviewed the x-rays. She still has some atelectasis and potentially scarring at the bases left more than right. Indeed her x-rays have not been normal after her surgery. She was concerned because of the hyperinflation. Therefore, in the office today we did a repeat spirometry demonstrating no obstructive ventilatory defect therefore the patient does not have COPD. However, she may have asthma with waxing waning symptoms. Therefore we did talk about considering a methacholine challenge. In the meantime the patient does have a rescue inhaler and we did provide her with a peak flow to make sure that she will check her peak flow regularly, but, also when having symptoms. 06/27/2020 the patient is here for pulmonary follow-up visit. Overall she has been doing very well. She has not had to use her rescue inhaler. She does state active walking on a regular basis. She denies any wheezing or any significant coughing. Again we talked about a spirometry demonstrating no evidence of a fixed obstruction. The patient is concerned with the diagnosis of COPD. At this point we do not find any evidence of COPD, although, she probably has some reactive airway disease and/or asthma. She also had a chest x-ray that we personally reviewed in the office. She has interval resolution of the atelectasis although she still has some slight thickening of the left diaphragmatic paresis. Very minimal. In addition to that likely has some apical scarring which is common. Otherwise the patient is without any other complaints. Will plan to have her come back sometime in the fall of 2020 and will perform formal pulmonary functions at that time. If the patient has any worsening symptoms prior to that she is to call for an appointment. 10/24/2023 the patient is here for a sick visit. Apparently she had been in his usual state health until after the holidays when she started developing a respiratory illness. She started developing a cough. Cough was persistent. Moderate severity. Did not respond to her respiratory therapy. She did seek medical care. She had an x-ray without any acute disease. The patient was also placed on a course of antibiotics, doxycycline. No significant improvement. She still been struggling with her cough. Denies any chest tightness or wheezing. Denies any fevers or chills. On examination today the patient does have a cough which appears to be more bronchospastic. In addition to that does have erythema of the nose although no significant cobblestoning. Will go ahead and request blood work to assess here immune system and also allergies which may be contributing to her underlying upper airway cough syndrome. Will go ahead and also treat her for sinusitis and patient will call if she is no better. 12/04/2023 the patient is here for pulmonary follow-up visit. She has feeling a little better although she states that after she was treated she ended up a strep ended up needing another course of antibiotics. Now she is finally getting a little better. The cough continues to be persistent moderate severity. Typically hacky cough. Again she has been on multiple courses of antibiotics. We did check a blood work her immune system is strong with normal immunoglobulin levels. Her IgE levels are normal and no significant eosinophilia. Therefore no significant allergic component appreciated. Since she has strep I did recommend she get the Prevnar 20 vaccine today. Her PFTs are really reassuring without any evidence of obstruction although it could be waxing and waning therefore, coughing asthma still in differential. Will prov abraham her with Tessalon Perles to see if we can alleviate some of the cough symptoms. In the meantime she is going to start empirically Breo once a day. If the patient is no better and she continues to cough then we talked about ordering a CT scan of the chest. I did review her last chest x-ray that she had this year demonstrating some peribronchial coughing suggesting some degree of bronchitis and also has some slight blunting of the recess on the left side. Therefore will be reasonable to further look into her lungs with a CT scan to address her ongoing symptoms. 03/30/2024 the patient is here for a pulmonary follow-up visit. The patient continues have a cough. Moderate severity. Still very bothersome to her people around her. It is independent of position and also eating. She did try the inhaler Breo for a month without any significant improvement. Likely has a upper airway cough syndrome. The patient has been also having issues with hoarseness. No significant productive secretions. The patient will benefit from an ENT evaluation for laryngoscopy to assess her vocal cords. In the meantime will be reasonable to start her on small dose of Sudafed. The patient sounds to be sensitive to the Sudafed at high dose. In addition to that we can try 1st generation antihistamine to treat her for the upper a cuff syndrome. She can use inhaler as needed. Will also repeat an x-ray. Her last x-ray was abnormal. If she has any changes on the x-ray the CT scan be helpful to further address her ongoing symptoms. 07/20/2024 the patient is here for a pulmonary follow-up visit. Overall she is doing about the same. Her cough is still persistent. Moderate severity. Typically nonproductive. She has tried multiple medications and more recently she was placed on Neurontin for neurogenic cough. Although the Neurontin is very affecting hoping her sleep has not helped with her cough. She did undergo a CT scan of the chest which I personally reviewed without any significant findings except a small pulmonary nodule that will need follow-up in a year's time. No evidence of any interstitial lung disease. No evidence of any bronchitis. Possibly small hiatal hernia. The patient did also have a barium swallow which I personally reviewed with her. She did evidence of esophagitis in addition to reflux disease moderate in amount. Patient also was documented to have a small hiatal hernia. She does have some postoperative changes as well from previous surgery that she had many years ago. At this point is important for her to go back to GI. She is already following reflux diet. She is on a PPI and also try H2 blockers. She is concerned with her chronic use of PPIs and osteoporosis. Will go ahead and refer her back to GI at this time. [facility] Medical History (Updated 07/21/24 @ 22:19 by Claudy Hunter MD) Pulmonary nodule Hiatal hernia Esophagitis Pleural thickening Upper airway cough syndrome Chronic cough Allergies Reactive airway disease Abnormal chest x-ray Social History (Updated 05/14/24 @ 10:39 by Jing Dow Fransisca) Patient Tobacco Use Status: Former Tobacco user Tobacco use type: Cigarette Years Smoked: 4 Years Review of Systems Const Denies night sweats ENT Denies lip swelling, Denies mouth pain, Reports nasal congestion, Reports nasal discharge, Reports nasal obstruction, Reports post nasal drip and Denies tongue swelling Card Denies chest pain Resp Reports cough GI Denies abdominal pain Musc Denies no additional complaints Neuro Denies Neuro-related abnormal movements Psych Denies no additional complaints Paolo/Lymph Denies easy bleeding and Denies lymphadenopathy Aller/Immun Denies lip swelling and Denies tongue swelling Physical Exam Vital Signs: Last Vital Signs Pulse 75 07/20/24 14:06 BP 97/60 07/20/24 14:06 Pulse Ox 94 07/20/24 14:06 Oxygen Delivery Method Room Air 07/20/24 14:06 BMI result Body Mass Index 24.7 Const General: alert HEENT General nose exam: Abnormal external nose present and Nasal discharge present Eyes Pupils: Equal, round and reactive pupils present Neck Neck: Yes normal visual inspection, Yes full ROM and Yes no lymphadenopathy Chest Chest palpation & inspection: normal inspection of the chest Resp Effort & Inspection: normal respiratory effort Auscultation: clear to auscultation bilaterally Cardio Rate: regular rate Rhythm: regular rhythm Heart sounds: S1 normal heart sound present and S2 normal heart sound present GI Palpation (GI): Soft to palpation and nontender Auscultation: normal bowel sounds General: Yes no CVA tenderness Back/Spine/Pelvis Back: no CVA tenderness Skin General skin exam: rashes and/or lesions noted Neuro Cranial nerves: Yes Equal, round and reactive pupils present Assessment & Plan Assessment & Plan (1) Reactive airway disease: Code(s): J45.909 - Unspecified asthma, uncomplicated Category: Medical Qualifiers: Asthma complication type: uncomplicated Asthma persistence: intermittent Asthma severity: mild Qualified Code(s): J45.20 - Mild intermittent asthma, uncomplicated Plan: Continue short-acting beta agonist as needed If she needs her short-acting beta agonist regularly consider methacholine challenge to assess for hyperreactive airways and diagnosis of asthma. (2) Chronic cough: Code(s): R05.3 - Chronic cough Category: Medical (3) Allergies: Code(s): T78.40XA - Allergy, unspecified, initial encounter Category: Medical Qualifiers: Encounter type: initial encounter Qualified Code(s): T78.40XA - Allergy, unspecified, initial encounter (4) Upper airway cough syndrome: Code(s): R05.8 - Other specified cough Category: Medical (5) Esophagitis: Code(s): K20.90 - Esophagitis, unspecified without bleeding Category: Medical (6) Hiatal hernia: Code(s): K44.9 - Diaphragmatic hernia without obstruction or gangrene Category: Medical (7) Pulmonary nodule: Code(s): R91.1 - Solitary pulmonary nodule Category: Medical Plan low dose pseudophed as needed chlorphenarimine as needed LORI as needed CT chest in 1 yr trial Azithromycin as a promotility agent, will get EKG GI referral F/U 3-4 months Orders: Orders ECG 12 lead EKG 07/20/24 J44.9 - Chronic obstructive pulmonary disease, unspecified Referrals Gastroenterology Referral K20.90 - Esophagitis, unspecified without bleeding, K44.9 - Diaphragmatic hernia without obstruction or gangrene, R05.3 - Chronic cough Medications: New azithromycin Take 1 tablet on Friday/Friday/Friday 250 mg PO 3XW 12 tabs 3RF 28 days K21.9 - Gastro-esophageal reflux disease without esophagitis Coding Level of Care Code Est Pt Level 4 (01997) Diagnoses Mild intermittent reactive airway disease without complication J45.20 Asthma complication type: uncomplicated Asthma persistence: intermittent Asthma severity: mild Chronic cough R05.3 Allergy, initial encounter T78.40XA Encounter type: initial encounter Upper airway cough syndrome R05.8 Esophagitis K20.90 Hiatal hernia K44.9 Pulmonary nodule R91.1 Time Spent (min) 18
== END 2024-07-20 14:37 | disposition home or self-care (01) ==
PROVIDERS: PCP Physician Assistant Medical; Visit Provider Hospitalist
DX: J45.20 Mild intermittent asthma, uncomplicated (principal); R05.3 Chronic cough; T78.40XA Allergy, unspecified, initial encounter; R05.8 Other specified cough; K20.90 Esophagitis, unspecified without bleeding; K44.9 Diaphragmatic hernia without obstruction or gangrene; R91.1 Solitary pulmonary nodule
CPT/HCPCS: 99214

== ENCOUNTER → 2024-07-20 14:03 | Outpatient (BNVA) | payer BC, SELFPAY | PROVIDERS: PCP Internal Medicine; Visit Provider Hospitalist ==

== ENCOUNTER → 2024-08-06 08:09 | Outpatient (REF) | payer BC, SELFPAY ==
--- NOTE | 2024-08-06 08:13 | ECG_ITS ---
Test Reason : COPD Blood Pressure : */* mmHG Vent. Rate : 68 BPM Atrial Rate : 68 BPM P-R Int : 176 ms QRS Dur : 78 ms QT Int : 382 ms P-R-T Axes : 67 59 49 degrees QTcB Int : 406 ms Normal sinus rhythm Normal ECG No previous ECGs available Referred By: Claudy Hunter Electronically Signed By: ALFREDO BAR MD
--- OUTSIDE RECORDS SUMMARY | 2024-08-06 08:23 | XMS_ITS | Continuity of Care Document ---
Author Organization [facility] [address] [place] [address] Phone [phone] Care Team Providers Care Bottle Tester Name Role Phone Luann Harman Care Team Information Receiv er [phone] Problems Active Problems Provider Date Gastroesophageal reflux [...] SIG Qnty Indications Ordering Provider Date Vitamin [id number] Tablets 1 by mouth every day Narayan Chou M.D. 07/27/2024 Albuterol Sulfate [id number](90Base) mcg/Act Aerosol Take 2 Puffs Every Four Hours as Needed For Wheezing/Shortnes s Of Breath Unknown Pantoprazole [id number] Tablets DR Take One Tablet By Mouth Twice A Day Unknown [id number] Capsules Take 1 Capsule By Mouth Nightly Unknown Sertraline [id number] Tablets 1 by mouth every day Unknown Erythromycin Skdg991ik Tablets Take 1 tablet by mouth 3 times per week. Unknown Vital Signs Date Vital Result Comment 07/26/2024 8:27am BP Systolic 120 mmHg BP Diastolic 84 mmHg Heart Rate 72 /min Height 63 inches 5'3 Weight 141.00 lb BMI (Body Mass Index) 25.0 kg/m2 Results Test Acquired Date Facility Test Result H/L Range Note Basic Metabolic Panel (8) 07/26/2024 [facility] Glucose 92 mg/dL 70-99 BUN 16 mg/dL 8-27 Creatinine 0.53 mg/dL Low 0.57-1.0 0 eGFR 102 mL/min/1.73 >59 BUN/Creatinine Ratio 30 High 12-28 Sodium 140 mmol/L 134-144 Potassium 4.2 mmol/L 3.5-5.2 Chloride 104 mmol/L 96-106 Carbon Dioxide, Total 23 mmol/L 20-29 Laboratory test finding 07/26/2024 [facility] Albumin 4.1 g/dL 3.9-4.9 Calcium 9.7 mg/dL 8.7-10.3 Vitamin D, 25-Hydroxy 20.8 ng/mL Low 30.0-100 .0 1 Laboratory test finding 08/08/2023 [facility] Calcium 9.3 mg/dL (8.6-10. 5) Creatinine 08/08/2023 [facility] Creatinine 0.6 mg/dL (0.5-1.0 ) Estimated GFR Creatinine 100 ML/MIN/1.73 M2 2 Laboratory test finding 08/08/2023 [facility] BUN 11 mg/dL (8-23) Laboratory test finding 08/20/2022 [facility] Albumin 4.4 GM/DL (3.4-4.8 ) BUN 13 mg/dL (8-23) Calcium 10.1 mg/dL (8.6-10. 5) Creatinine 08/20/2022 [facility] Creatinine 0.7 mg/dL (0.5-1.0 ) Estimated GFR Creatinine 95 ML/MIN/1.73 M2 3 Laboratory test finding 08/19/2022 [facility] BUN <pending> Albumin <pending> Calcium <pending> Creatinine <pending> Complete Abc With Diff 08/09/2022 [facility] WBC 5.5 K/MM3 (4.0-11. 0) [...] ) Lymph # 1.5 K/MM3 (0.8-3.1 ) Gilpin# 0.6 K/MM3 (0.4-0.9 ) Eo # 0.1 K/MM3 (0.0-0.4 ) Baso # 0.1 K/MM3 (0.0-0.1 ) Abs. Imm Gran 0.0 K/MM3 Neut 57.8 % (44-76) Lymph 27.0 % (15-43) Monocyte 10.7 % High (4.5-10. 5) Eo 2.5 % (0-6) Baso 1.6 % (0-2) Imm Gran 0.4 % N-Telopeptide Cross Links, Urine 08/09/2022 [facility] Cross Linked N-Telopeptides 439 4 Creat, Urine 195.8 5 N-Telopeptide/C re at Ratio 25 6 NTX Interpretaion Comment 7 1 Vitamin D deficiency has been defined by the [place] of [employer] and an Endocrine Society practice guideline as a level of serum 25-OH vitamin D less than 20 ng/mL (1,2). The Endocrine Society went on to further define vitamin D insufficiency as a level between 21 and 29 ng/mL (2). 1. IOM ([place] of Medicine). 2010. Dietary reference intakes for calcium and D. [place]: The National Academies Press. 2. Zuleima RICE, Siddhartha NEGRETE, Ganga BALLARD, et al. Evaluation, treatment, and prevention of vitamin D deficiency: an Endocrine Society clinical practice guideline. JCEM. 2010; 96(7):1911-30. 2 Creatinine based est imated glomerular filtration (eGFR) in adults is calculated using the National Kidney Foundation recommended 2021 CKD-EPI equation. Estimates GFR from serum creatinine, age and sex. 3 Creatinine based est imated glomerular filtration (eGFR) in adults is calculated using the National Kidney Foundation recommended 2021 CKD-EPI equation. Estimates GFR from serum creatinine, age and sex. 4 Reference range: Not Estab. Unit: nmol [place] [address] 5 Reference range: Not Estab. Unit: mg/dL Test performed by [facility], [address] [place] [address] 6 Reference range: 0 t o 89 Unit: nM BCE/mM Cr 7 (NOTE) The N-telopeptide and Creatinine are used [...] value is <or EQ 38 nM BCE/mM METALIZING SUPERVISOR, or NTx has decreased >or EQ 30% [...] J Bone Min Res.11(1):M757,1995 Test performed at [facility], [address] [place] [address] Medical Devices Description No Information Available Encounters Type Date Location Provider Dx Diagnosis Office Visit 07/26/2024 8:15a Main Office Narayan Chou M.D. M81.0 Age-related osteoporosis w/o current pathological fracture Assessments Date Code Description Provider 07/26/2024 M81.0 Osteoporosis Narayan heard M.D. Plan of Treatment Future Appointment(s):* 07/28/2025 8:15 am - Narayan Chou M.D. at Main Office 04/01/2022 - Narayan Chou M.D.* M81.0 Osteoporosis * Functional Status Description No Information Available Mental Status Description No Information Available Referrals Description No Information Available
== END ==
LOC: HO.CARD 08:09
PROVIDERS: Visit Provider Hospitalist
DX: J44.9 Chronic obstructive pulmonary disease, unspecified (principal)
CPT/HCPCS: 93005

== ENCOUNTER → 2024-08-06 08:13 | Outpatient (BNV) | payer BC, SELFPAY | PROVIDERS: Visit Provider Internal Medicine Cardiovascular Disease | DX: J44.9 Chronic obstructive pulmonary disease, unspecified (principal) | CPT/HCPCS: 93010 ==